=== PATIENT | female | born 1985 | race Caucasian/White ===

== ENCOUNTER → 2019-08-15 | Outpatient (CLI) | payer MEDICAID ==
--- NOTE | 2019-08-15 16:52 | RAD ---
EXAM: Obstetrics sonogram. HISTORY: Unsure dates. TECHNIQUE: Transabdominal sonographic imaging of the pelvis was performed. COMPARISON: None. FINDINGS: There is a single intrauterine gestational sac and fetus with normal heart rate of 169 bpm. The cervix is closed and measures 3.4 cm in length. There is a grade 1 posterior placenta without evidence of placenta previa. The maternal adnexal regions are unremarkable. The biparietal diameter is 3.04 cm, corresponding with 15 weeks and 4 days. The head circumference is 10.97 cm, corresponding with 15 weeks and 2 days. The abdominal circumference is 8.62 cm, corresponding with 14 weeks and 6 days. The femoral length is 1.58 cm, corresponding with 14 weeks and 5 days. The estimated gestational age patient combined also measurements is 15 weeks and 1 day and the estimated due date is 02/05/2020. IMPRESSION: Single intrauterine fetus with normal heart rate and gestational age based on ultrasound measurements of 1 day. Electronically signed by: Prachi Zee MD (08/15/2019 4:49 PM) [id number]
== END ==
LOC: US 15:40
PROVIDERS: ATTEND Family Medicine
DX: O09.92 Supervision of high risk pregnancy, unspecified, second trimester (principal); Z3A.15 15 weeks gestation of pregnancy
CPT/HCPCS: 76805

== ENCOUNTER → 2019-09-23 | Outpatient (CLI) | payer MEDICAID ==
--- NOTE | 2019-09-23 10:28 | RAD ---
EXAM: OBSTETRIC ULTRASOUND. HISTORY: Large for dates. COMPARISON: 08/15/2019. FINDINGS: Sonographic evaluation of the uterus, fetus and maternal pelvis was performed. There is a single fetus in vertex presentation. heart rate is 145 bpm. Estimated gestational age based on measurements is 20 weeks 3 days. Head circumference, biparietal diameter, abdominal circumference and femur length are commensurate. Estimated weight is 359 g. The placenta is posterior. There is no evidence of placenta previa. Amniotic fluid volume appears normal with amniotic fluid index 12.2 cm. The cervix is closed and measures 4.2 cm. The heart is four-chamber. The left and right ventricular outflow tracts are visualized. The stomach and bladder are visualized. Images of the spine reveal no clear defects. Facial and nose/lip morphology appear normal. There is no hydrocephalus. The posterior fossa appears normal. extremities appear normal. Images of the kidneys reveal no hydronephrosis. The cord insertion appears normal. The cord is three-vessel. The maternal adnexa are obscured by positioning currently. IMPRESSION: 1. Single fetus in vertex presentation. heart rate 145 bpm. Estimated gestational age based on measurements 20 weeks 3 days. Electronically signed by: Talia Beach MD (09/23/2019 10:25 AM) [id number]
== END | disposition home or self-care (01) ==
LOC: US 08:45
PROVIDERS: ATTEND Family Medicine
DX: Z34.82 Encounter for supervision of other normal pregnancy, second trimester (principal); Z3A.20 20 weeks gestation of pregnancy
CPT/HCPCS: 76805

== ENCOUNTER → 2020-02-04 | Outpatient (CLI) | payer MEDICAID | LOC: LAB 12:12 | PROVIDERS: ATTEND Family Medicine | DX: Z01.812 Encounter for preprocedural laboratory examination (principal); Z20.828 Contact with and (suspected) exposure to other viral communicable diseases | CPT/HCPCS: U0003 ==

== ENCOUNTER → 2020-03-29 | Outpatient (CLI) | payer MEDICAID ==
[2020-02-11 11:33] VITALS: BP 122/82
[~2020-03-29] MED LIST: HYDR-2761 PO; IBUP-1060 PO; OXYC-325 PO; PNV1TABL78 PO
== END ==
LOC: LAB 13:31
PROVIDERS: ATTEND Obstetrics & Gynecology
DX: Z01.812 Encounter for preprocedural laboratory examination (principal); Z20.828 Contact with and (suspected) exposure to other viral communicable diseases
CPT/HCPCS: U0003

== ENCOUNTER 2020-04-01 06:32 | Day surgery (SDC) | payer MEDICAID ==
[~2020-04-01 06:32] MED LIST changes: +HYDROmorphone 2 MG/ML VIAL IVP PRN; +IV RINGERS,LACTATED 1000ML 1,000 ML IV SCH; -OXYC-325 PO; +fentaNYL PF VIAL 100 MCG/2 ML VIAL IVP PRN
[2020-04-01] MEDS ORDERED: BUPIVACAINE-EPI 0.25% 30 ML VIAL KIT. ONE (07:01)
[2020-04-01] MEDS ORDERED: SEVOFLURANE 31 TO 60 MINUTES. IH ONE ×2 (07:12→08:05)
[2020-04-01] MEDS ORDERED: ONDANSETRON PF 4 MG/2 ML VIAL. ONE (07:12)
[2020-04-01] MEDS ORDERED: DEXAMETHASONE SOD PHOS 4 MG/ML VIAL ONE (07:12)
[2020-04-01] MEDS ORDERED: PROPOFOL 10 MG/ML (20ML) VIAL. IV ONE (07:12)
[2020-04-01] MEDS ORDERED: LIDOCAINE 2% PF 5 ML VIAL. ONE (07:12)
[2020-04-01] MEDS ORDERED: fentaNYL PF VIAL 100 MCG/2 ML VIAL ONE ×2 (07:14→08:45)
[2020-04-01] MEDS ORDERED: GLYCOPYRROLATE 1 MG/5 ML VIAL. ONE (08:05)
[2020-04-01] MEDS ORDERED: NEOSTIGMINE METHYLSULFATE 5 MG/5 ML SYRINGE. ONE (08:05)
--- NOTE | 2020-04-01 08:19 | PDOC ---
BRIEF OPERATIVE NOTE Date: Apr 01, 2020 Pre-Op Diagnosis Sterilization Post-Op Diagnosis Same Procedure Performed [facility] Surgeon Dr. Shields [id number] Administrator Associate Professor Of Economics: Trent Anesthesia Type: General Blood Loss 5 ml Specimens Obtained none Findings nml size uterus, nml fallopian tubes and ovaries agus. Complications none Operative Note see dictation REGINALD SHIELDS Jr, MD Apr 01, 2020 08:19
--- NOTE | 2020-04-01 08:21 | DISCH ---
DISCHARGE INSTRUCTIONS Condition on Discharge Condition on Discharge: Stable Activity After Discharge Activity Instructions for Disc: Activity as tolerated Lifting Instructions after Dis: No heavy lifting Exercise Instruction after Dis: Progress as tolerated Driving Instructions after Dis: Do not drive today Weight Bearing Status after Di: As tolerated Diet after Discharge Diet after Discharge: Regular Diet Texture: Regular Contacting the DRArti after DC Call your doctor for: If your condition worsens Follow-Up Follow up with: Dr. Shields in 1 week Treatment/Equipment after DC Adaptive Equipment Issued: None REGINALD SHIELDS Jr, MD Apr 01, 2020 08:21
--- NOTE | 2020-04-01 08:31 | OP ---
DATE OF SURGERY: 04/01/2020 PREOPERATIVE DIAGNOSIS: Sterilization. POSTOPERATIVE DIAGNOSIS: Sterilization. PROCEDURE: Laparoscopic BTL with Filshie clips. SURGEON: Reginald Shields MD CREDIT COLLECTOR: Trent. ANESTHESIA: GETA. ESTIMATED BLOOD LOSS: 5 mL. COMPLICATIONS: None. FINDINGS: Normal size uterus, normal fallopian tubes and ovaries bilaterally. SUMMARY: A 34-year-old female who desired permanent sterilization. She was counseled on risks, benefits and expectations as well as the failure rate and desired to proceed. DESCRIPTION OF PROCEDURE: The patient was taken to surgery suite and placed in dorsal lithotomy position, was prepped with Betadine solution for vaginal prep and ChloraPrep for abdominal prep. After adequate anesthesia, bivalve speculum was placed vaginally. Anterior lip of the cervix grasped with single tooth tenaculum. Uterine acorn manipulator was then placed. The bivalve speculum was removed. Attention was now placed on abdomen. Small transverse skin incision made just below the umbilicus with a scalpel. The Veress needle was then placed through the infraumbilical incision site. The abdomen was allowed to insufflate up to 1-1/2 liters CO2 gas. The Veress needle was then removed, 5 mm trocar was placed. Scope was positioned. The uterus, fallopian tubes and ovaries appeared normal bilaterally. An additional incision was made in the left lower quadrant, which an 8 mm trocar was placed with aid of Filshie clip applicator. Filshie clip was applied to the right fallopian tube in isthmus region, totally occluding the fallopian tube. Same process took place with left adnexa. Trocars removed under direct visualization. Abdomen was allowed to deflate as much as possible along with mechanical manipulation. The two skin incisions were reapproximated using 4-0 Vicryl suture in subcuticular manner. A 0.25% Marcaine with epinephrine was injected at each incision site. Uterine acorn manipulator and single tooth tenaculum were removed. The patient tolerated the procedure well and was taken to recovery room in stable condition. Sponge and needle count correct x 3. REGINALD SHIELDS MD DR: ITZEL/linda JOB#: [id number] / [id number]
[2020-04-01] MEDS ORDERED: PROCHLORPERAZINE 10 MG/2 ML VIAL. ONE (08:45)
[2020-04-01] MEDS: PROCHLORPERAZINE 10 MG/2 ML VIAL. IVP PRN ×2 (08:46→09:35)
[2020-04-01] MEDS: fentaNYL PF VIAL 100 MCG/2 ML VIAL IVP PRN ×2 (08:46→09:03)
[2020-04-01] MEDS ORDERED: OXYC-325 PO (08:57)
[2020-04-01] MEDS ORDERED: MORPHINE SULFATE 2 MG/ML VIAL. ONE (09:05)
[2020-04-01] MEDS: MORPHINE SULFATE 2 MG/ML VIAL. IVP PRN ×2 (09:10→09:22)
[2020-04-01] MEDS ORDERED: oxyCODONE/APAP 5/325 1 TAB TABLET PO ONE ×2 (09:15)
[2020-04-01 09:26] VITALS: BP 94/32
== END 2020-04-01 10:02 | disposition home or self-care (01) ==
LOC: SURG 06:32
PROVIDERS: ATTEND Obstetrics & Gynecology
DX: Z30.2 Encounter for sterilization (principal); Z79.899 Other long term (current) drug therapy; Z87.891 Personal history of nicotine dependence; Z98.890 Other specified postprocedural states
CPT/HCPCS: 58671; 81025; J0780; J1100; J2270; J2405; J2704; J2710; J3010; J3490